=== PATIENT | male | born 1935 | race Caucasian/White ===

== ENCOUNTER 2018-05-28 13:19 | Inpatient (IN) ==
[2018-05-28] MEDS ORDERED: ASPIRIN 325 MG TABLET PO STA (13:41)
[2018-05-28 13:53] LABS: Basophils % 0.2 % (0.0-0.8); Eosinophils % 0.1 % (0.00-10.9); Hematocrit 26.6 VOL% (42.0-52.0); Hemoglobin 8.1 GM/DL (14.0-18.0); Immature Granulocytes % 0.6 %; Immature Granulocytes Absolute 0.08 #; Lymphocytes # 1.7 10*3/uL (1.4-4.0); Lymphocytes % 11.7 % (21.2-54.2); Mean Corpuscular HGB Conc 30.5 GM/DL (32-36); Mean Corpuscular Hemoglobin 30 PG (27-34); Mean Corpuscular Volume 98.9 FL (87-102); Mean Platelet Volume 12.9 FL (9.6-12.0); Monocytes # 1.3 10*3/uL (0.11-0.8); Monocytes % 8.9 % (1.7-12.7); NRBC # 0.03 10*3/uL; Neutrophils # 11.1 10*3/uL (1.4-7.4); Neutrophils % 78.5 % (38.7-73.9); Platelet Count 285 T/CUMM (130-400); Red Blood Count 2.69 MC/CUMM (3.8-5.5); Red Cell Distribution Width 16.9 % (9.3-17.3); White Blood Count 14.1 T/CUMM (4-12)
[2018-05-28 14:07] LABS: INR 3.1; Partial Thromboplastin Time 39.8 SECS (0-40)
[2018-05-28 14:11] LABS: Albumin 3.1 G/DL (3.4-5.0); Bilirubin,Total 1.1 MG/DL (0.2-1.0); Calcium 8.6 MG/DL (8.5-10.1); Osmolality,Calculated 296.4 MOS/KG (273-304); Potassium 4.8 MMOL/L (3.5-5.1); Total Protein 6.4 G/DL (6.4-8.3)
[2018-05-28 14:32] LABS: Apearance,Urine Slightly Hazy (Clear); Bacteria,Urine Occasional /HPF (Few); Bilirubin,Urine Negative (Negative); Blood, Urine Moderate mg/dL (Negative); Glucose,Urine (UA) Negative (Negative); Hyaline Casts,Urine 9 /LPF (0-3); Ketones,Urine Negative (Negative); Mucus,Urine Occasional /LPF (Occasional); Nitrite,Urine Negative (Negative); Protein,Urine 100 MG/DL; RBC,Urine 10 /HPF (0-4); Squamous Epithelial Cell,Urine Occasional /HPF (0-10); Urine Color Yellow (Yellow); Urine Specific Gravity 1.012 (1.001-1.035); WBC,Urine 4 /HPF (0-6)
[2018-05-28] MEDS ORDERED: ACETAMINOPHEN 325 MG TABLET PO PRN (16:20)
[2018-05-28] MEDS ORDERED: ONDANSETRON 4 MG/2 ML VIAL IV PRN (16:20)
[2018-05-28] MEDS: SODIUM CHLORIDE 0.9% 1,000 ML IV SCH (16:30)
[2018-05-28] MEDS: MEROPENEM 1,000 MG in SODIUM CHLORIDE 0.9% 100 ML IV SCH (17:23)
[2018-05-28] MEDS ORDERED: WARFARIN 7.5 MG TABLET PO SCH (18:00)
[2018-05-29 00:57] LABS: Hematocrit 27.9 VOL% (42.0-52.0)
[2018-05-29] MEDS: MEROPENEM 1,000 MG in SODIUM CHLORIDE 0.9% 100 ML IV SCH ×2 (04:56→17:25)
[2018-05-29 06:10] LABS: Basophils % 0.2 % (0.0-0.8); Eosinophils # 0.1 10*3/uL (0.0-0.87); Eosinophils % 0.4 % (0.00-10.9); Hematocrit 27.6 VOL% (42.0-52.0); Hemoglobin 9.1 GM/DL (14.0-18.0); Immature Granulocytes % 0.4 %; Immature Granulocytes Absolute 0.05 #; Lymphocytes # 1.3 10*3/uL (1.4-4.0); Lymphocytes % 10.9 % (21.2-54.2); Mean Corpuscular Hemoglobin 31 PG (27-34); Mean Corpuscular Volume 93.9 FL (87-102); Mean Platelet Volume 12.6 FL (9.6-12.0); Monocytes # 1.3 10*3/uL (0.11-0.8); Monocytes % 10.3 % (1.7-12.7); NRBC # 0.03 10*3/uL; Neutrophils # 9.4 10*3/uL (1.4-7.4); Neutrophils % 77.8 % (38.7-73.9); Platelet Count 192 T/CUMM (130-400); Red Blood Count 2.94 MC/CUMM (3.8-5.5); Red Cell Distribution Width 16.3 % (9.3-17.3); White Blood Count 12.1 T/CUMM (4-12)
[2018-05-29 06:39] LABS: Osmolality,Calculated 296.7 MOS/KG (273-304); Potassium 4.5 MMOL/L (3.5-5.1)
[2018-05-29 06:49] LABS: Risk Ratio 3.55; Thyroid Stimulating Hormone 1.83 uIU/ml (0.358-3.74); VLDL CHOLESTEROL 27.8 MG/DL
[2018-05-29 06:58] LABS: Troponin I 1.65 NG/ML (0.00-0.045)
[2018-05-29] MEDS ORDERED: PHYTONADIONE 5 MG/5 ML ORAL.SYR PO ONE (08:14)
[2018-05-29] MEDS: PANTOPRAZOLE 40 MG TABLET PO SCH (08:39)
[2018-05-29] MEDS: ALLOPURINOL 300 MG TABLET PO SCH (08:39)
[2018-05-29] MEDS: ASPIRIN EC 81 MG TABLET PO SCH (08:39)
[2018-05-29] MEDS: METOPROLOL SUCCINATE XL 100 MG TABLET PO SCH (08:40)
[2018-05-29] MEDS: ATORVASTATIN 40 MG TABLET PO SCH (09:57)
[2018-05-29] MEDS: amLODIPine 2.5 MG TABLET PO SCH (09:57)
[2018-05-29] MEDS: SODIUM CHLORIDE 0.9% 1,000 ML IV SCH (13:05)
[2018-05-29] MEDS ORDERED: WARFARIN 5 MG TABLET PO SCH (18:00)
[2018-05-30] MEDS: MEROPENEM 1,000 MG in SODIUM CHLORIDE 0.9% 100 ML IV SCH ×2 (04:34→16:01)
[2018-05-30] MEDS: SODIUM CHLORIDE 0.9% 1,000 ML IV SCH ×3 (04:36→22:49)
[2018-05-30 04:41] LABS: ABG Base Excess -1.6 MMOL/L (-2.5-2.5); ABG HCO3 21.1 MMOL/L (20-26); ABG PCO2 30.6 MM HG (35-48); ABG PH 7.456 (7.35-7.45); ABG PO2 67.4 MM HG (80-95); Allen Test Positive
[2018-05-30 04:42] LABS: ABG Oxygen Saturation 94.5 % (95-100)
[2018-05-30 04:47] LABS: INR 1.5; PT Patient Result 15.8 SECS
[2018-05-30 05:31] LABS: Albumin 2.6 G/DL (3.4-5.0); Calcium 7.7 MG/DL (8.5-10.1); Osmolality,Calculated 302.3 MOS/KG (273-304)
[2018-05-30 05:43] LABS: Troponin I 0.931 NG/ML (0.00-0.045)
[2018-05-30] MEDS: ASPIRIN EC 81 MG TABLET PO SCH (09:06)
[2018-05-30] MEDS: METOPROLOL SUCCINATE XL 100 MG TABLET PO SCH (09:07)
[2018-05-30] MEDS: ATORVASTATIN 40 MG TABLET PO SCH (09:07)
[2018-05-30] MEDS: ALLOPURINOL 300 MG TABLET PO SCH (09:07)
[2018-05-30] MEDS: PANTOPRAZOLE 40 MG TABLET PO SCH (09:08)
[2018-05-30] MEDS: amLODIPine 2.5 MG TABLET PO SCH (09:08)
[2018-05-30] MEDS ORDERED: INFLUENZA VIRUS VACCINE 0.5 ML SYRINGE IM ONE (11:43)
[2018-05-31] MEDS: MEROPENEM 1,000 MG in SODIUM CHLORIDE 0.9% 100 ML IV SCH ×2 (03:58→16:17)
[2018-05-31 06:00] LABS: Basophils % 0.3 % (0.0-0.8); Eosinophils # 0.2 10*3/uL (0.0-0.87); Hematocrit 28.9 VOL% (42.0-52.0); Hemoglobin 8.9 GM/DL (14.0-18.0); Immature Granulocytes % 0.7 %; Immature Granulocytes Absolute 0.08 #; Lymphocytes # 1.9 10*3/uL (1.4-4.0); Lymphocytes % 15.8 % (21.2-54.2); Mean Corpuscular HGB Conc 30.8 GM/DL (32-36); Mean Corpuscular Hemoglobin 29 PG (27-34); Mean Corpuscular Volume 95.4 FL (87-102); Mean Platelet Volume 12.6 FL (9.6-12.0); Monocytes # 1.2 10*3/uL (0.11-0.8); NRBC # 0.03 10*3/uL; Neutrophils # 8.7 10*3/uL (1.4-7.4); Neutrophils % 71.2 % (38.7-73.9); Platelet Count 256 T/CUMM (130-400); Red Blood Count 3.03 MC/CUMM (3.8-5.5); Red Cell Distribution Width 16.6 % (9.3-17.3); White Blood Count 12.3 T/CUMM (4-12)
[2018-05-31 06:23] LABS: Calcium 8.2 MG/DL (8.5-10.1); Osmolality,Calculated 301.3 MOS/KG (273-304); Potassium 3.9 MMOL/L (3.5-5.1)
[2018-05-31 06:26] LABS: Albumin 2.7 G/DL (3.4-5.0); Calcium 7.9 MG/DL (8.5-10.1); Potassium 4.2 MMOL/L (3.5-5.1)
[2018-05-31] MEDS: amLODIPine 2.5 MG TABLET PO SCH (08:54)
[2018-05-31] MEDS: ATORVASTATIN 40 MG TABLET PO SCH (08:55)
[2018-05-31] MEDS: METOPROLOL SUCCINATE XL 100 MG TABLET PO SCH (08:55)
[2018-05-31] MEDS: ALLOPURINOL 300 MG TABLET PO SCH (08:55)
[2018-05-31] MEDS: PANTOPRAZOLE 40 MG TABLET PO SCH (08:55)
[2018-05-31] MEDS: ASPIRIN EC 81 MG TABLET PO SCH (08:55)
[2018-05-31] MEDS: SODIUM BICARB INJ 100 MEQ in DEXTROSE 5% 1,000 ML IV SCH (10:52)
[2018-06-01] MEDS: SODIUM BICARB INJ 100 MEQ in DEXTROSE 5% 1,000 ML IV SCH (01:15)
[2018-06-01] MEDS: MEROPENEM 1,000 MG in SODIUM CHLORIDE 0.9% 100 ML IV SCH ×2 (04:28→18:42)
[2018-06-01 06:08] LABS: INR 1.1; PT Patient Result 11.8 SECS
[2018-06-01 06:09] LABS: Basophils % 0.5 % (0.0-0.8); Eosinophils # 0.2 10*3/uL (0.0-0.87); Eosinophils % 2.8 % (0.00-10.9); Hematocrit 25.8 VOL% (42.0-52.0); Hemoglobin 8.4 GM/DL (14.0-18.0); Immature Granulocytes % 0.6 %; Immature Granulocytes Absolute 0.05 #; Lymphocytes # 1.1 10*3/uL (1.4-4.0); Lymphocytes % 12.8 % (21.2-54.2); Mean Corpuscular HGB Conc 32.6 GM/DL (32-36); Mean Corpuscular Hemoglobin 31 PG (27-34); Mean Corpuscular Volume 95.2 FL (87-102); Mean Platelet Volume 12.5 FL (9.6-12.0); Monocytes % 11.7 % (1.7-12.7); Neutrophils % 71.6 % (38.7-73.9); Platelet Count 195 T/CUMM (130-400); Red Blood Count 2.71 MC/CUMM (3.8-5.5); Red Cell Distribution Width 16.2 % (9.3-17.3); White Blood Count 8.4 T/CUMM (4-12)
[2018-06-01 06:33] LABS: Albumin 2.4 G/DL (3.4-5.0); Calcium 7.7 MG/DL (8.5-10.1); Potassium 3.9 MMOL/L (3.5-5.1)
[2018-06-01] MEDS ORDERED: SODIUM CHLORIDE 0.9% 1,000 ML IV PRN (08:27)
[2018-06-01] MEDS: PANTOPRAZOLE 40 MG TABLET PO SCH (09:03)
[2018-06-01] MEDS: ALLOPURINOL 300 MG TABLET PO SCH (09:03)
[2018-06-01] MEDS: ATORVASTATIN 40 MG TABLET PO SCH (09:03)
[2018-06-01] MEDS: METOPROLOL SUCCINATE XL 100 MG TABLET PO SCH (09:03)
[2018-06-01] MEDS: amLODIPine 2.5 MG TABLET PO SCH (09:03)
[2018-06-01] MEDS: ASPIRIN EC 81 MG TABLET PO SCH (09:03)
[2018-06-02] MEDS: MEROPENEM 1,000 MG in SODIUM CHLORIDE 0.9% 100 ML IV SCH ×2 (04:59→17:22)
[2018-06-02 05:50] LABS: Basophils % 0.4 % (0.0-0.8); Eosinophils # 0.1 10*3/uL (0.0-0.87); Eosinophils % 1.5 % (0.00-10.9); Hematocrit 29.7 VOL% (42.0-52.0); Hemoglobin 9.7 GM/DL (14.0-18.0); Immature Granulocytes % 0.6 %; Immature Granulocytes Absolute 0.05 #; Lymphocytes % 12.8 % (21.2-54.2); Mean Corpuscular HGB Conc 32.7 GM/DL (32-36); Mean Corpuscular Hemoglobin 30 PG (27-34); Mean Corpuscular Volume 92.5 FL (87-102); Mean Platelet Volume 12.1 FL (9.6-12.0); Monocytes # 0.8 10*3/uL (0.11-0.8); Monocytes % 10.4 % (1.7-12.7); Neutrophils # 5.9 10*3/uL (1.4-7.4); Neutrophils % 74.3 % (38.7-73.9); Platelet Count 203 T/CUMM (130-400); Red Blood Count 3.21 MC/CUMM (3.8-5.5); Red Cell Distribution Width 16.4 % (9.3-17.3)
[2018-06-02 05:51] LABS: Albumin 2.4 G/DL (3.4-5.0); Calcium 8.3 MG/DL (8.5-10.1); Osmolality,Calculated 297.1 MOS/KG (273-304); Potassium 4.1 MMOL/L (3.5-5.1)
[2018-06-02 05:57] LABS: Calcium 8.4 MG/DL (8.5-10.1); Osmolality,Calculated 294.3 MOS/KG (273-304); Potassium 3.9 MMOL/L (3.5-5.1)
[2018-06-02] MEDS ORDERED: FUROSEMIDE 40 MG/4 ML VIAL IV ONE (08:14)
[2018-06-02] MEDS ORDERED: MAGNESIUM SULF RIDER 2 GM in PREMIX 1 EACH IV PRN (08:15)
[2018-06-02] MEDS ORDERED: POTASSIUM CHLORIDE RIDER 10 MEQ in PREMIX 1 EACH IV PRN (08:15)
[2018-06-02] MEDS: METOPROLOL SUCCINATE XL 100 MG TABLET PO SCH (09:24)
[2018-06-02] MEDS: PANTOPRAZOLE 40 MG TABLET PO SCH (09:24)
[2018-06-02] MEDS: ASPIRIN EC 81 MG TABLET PO SCH (09:24)
[2018-06-02] MEDS: ALLOPURINOL 300 MG TABLET PO SCH (09:24)
[2018-06-02] MEDS: ATORVASTATIN 40 MG TABLET PO SCH (09:24)
[2018-06-02] MEDS: amLODIPine 2.5 MG TABLET PO SCH (09:24)
[2018-06-02] MEDS: miSOPROStol 200 MCG TABLET PO SCH ×3 (11:35→23:11)
[2018-06-02] MEDS: ACETYLCYSTEINE 600 MG CAPSULE PO SCH ×2 (11:36→23:11)
[2018-06-02] MEDS: TROLAMINE SALICYLATE 10% CREAM 85 GM TUBE TOP SCH ×3 (15:19→23:14)
[2018-06-02] MEDS ORDERED: SODIUM BICARB INJ 50 MEQ in SODIUM CHLORIDE 0.45% 1,000 ML IV SCH (16:00)
[2018-06-03 03:43] LABS: Basophils % 0.2 % (0.0-0.8); Eosinophils # 0.1 10*3/uL (0.0-0.87); Eosinophils % 1.5 % (0.00-10.9); Hematocrit 30.8 VOL% (42.0-52.0); Hemoglobin 9.9 GM/DL (14.0-18.0); Immature Granulocytes % 0.6 %; Immature Granulocytes Absolute 0.06 #; Lymphocytes # 1.1 10*3/uL (1.4-4.0); Lymphocytes % 11.9 % (21.2-54.2); Mean Corpuscular HGB Conc 32.1 GM/DL (32-36); Mean Corpuscular Hemoglobin 30 PG (27-34); Mean Corpuscular Volume 93.9 FL (87-102); Mean Platelet Volume 11.9 FL (9.6-12.0); Monocytes # 0.9 10*3/uL (0.11-0.8); Monocytes % 9.9 % (1.7-12.7); Neutrophils % 75.9 % (38.7-73.9); Platelet Count 218 T/CUMM (130-400); Red Blood Count 3.28 MC/CUMM (3.8-5.5); Red Cell Distribution Width 16.3 % (9.3-17.3); White Blood Count 9.3 T/CUMM (4-12)
[2018-06-03 04:00] LABS: Calcium 8.8 MG/DL (8.5-10.1); Osmolality,Calculated 297.1 MOS/KG (273-304)
[2018-06-03] MEDS: MEROPENEM 1,000 MG in SODIUM CHLORIDE 0.9% 100 ML IV SCH (05:38)
[2018-06-03] MEDS ORDERED: diphenhydrAMINE CAP 25 MG CAPSULE PO ONE (08:15)
[2018-06-03] MEDS ORDERED: DIAZEPAM 5 MG TABLET PO ONE (08:15)
[2018-06-03] MEDS: ATORVASTATIN 40 MG TABLET PO SCH (09:04)
[2018-06-03] MEDS: METOPROLOL SUCCINATE XL 100 MG TABLET PO SCH (09:05)
[2018-06-03] MEDS: PANTOPRAZOLE 40 MG TABLET PO SCH (09:05)
[2018-06-03] MEDS: ASPIRIN EC 81 MG TABLET PO SCH (09:05)
[2018-06-03] MEDS: amLODIPine 2.5 MG TABLET PO SCH (09:05)
[2018-06-03] MEDS: ACETYLCYSTEINE 600 MG CAPSULE PO SCH (09:05)
[2018-06-03] MEDS ORDERED: HEPARIN/NACL 0.9% 2 UNITS/ML 1,000 ML IV ONE (09:12)
[2018-06-03] MEDS ORDERED: LIDOCAINE 1%/EPI INJ 20 ML VIAL ONE (09:12)
[2018-06-03] MEDS ORDERED: fentaNYL 100 MCG/2 ML VIAL ONE (09:45)
[2018-06-03] MEDS ORDERED: MIDAZOLAM 2 MG/2 ML VIAL ONE (09:45)
[2018-06-03] MEDS ORDERED: FAMOTIDINE 20 MG/2 ML VIAL IV ONE (09:58)
[2018-06-03] MEDS ORDERED: HYDROmorphone 2 MG/1 ML VIAL ONE (10:26)
[2018-06-03] MEDS ORDERED: DEXTROSE 5% NACL 0.45% 1,000 ML IV SCH (11:30)
[2018-06-03] MEDS ORDERED: EPINEPHrine 1 MG/10 ML SYRINGE ONE ×2 (15:26)
[2018-06-03] MEDS ORDERED: FUROSEMIDE 40 MG/4 ML VIAL IM SCH (16:00)
[2018-06-03 18:29] VITALS: BP 123/58
== END 2018-06-03 15:31 | disposition expired ==
LOC: N.ED 13:19 → SUATTDRO 15:28 → N.EDINP 15:28 → N.CC 16:10 → N.TELES 05-30 12:48
PROVIDERS: ADMIT Internal Medicine; ATTEND Internal Medicine